=== PATIENT | female | born 1980 ===

== ENCOUNTER 2019-01-11 13:41 | Inpatient (IN) | payer BC, MEDICAID ==
[2019-01-11] MEDS ORDERED: Sodium Chloride 0.9% 10 ML Syringe FLUSH PRN (14:33)
[2019-01-11] MEDS ORDERED: Citric Acid/Sodium Citrate Solution 30 ML Cup PO ONE (14:33)
[2019-01-11] MEDS ORDERED: Sodium Chloride 0.9% 10 ML SDV IV PRN (14:33)
[2019-01-11] MEDS ORDERED: Sodium Chloride 0.9% 2.5 ML Syringe FLUSH PRN (14:33)
[2019-01-11] MEDS ORDERED: ceFAZolin 2 GM in Premix Bag 1 BAG IV ONE (14:51)
[2019-01-11] MEDS ORDERED: Oxytocin/0.9 % Sodium Chloride 30 UNIT/500 ML BAG IV SCH (15:00)
[2019-01-11] MEDS: Lactated Ringers 1,000 ML IV SCH ×2 (15:05→16:46)
--- NOTE | 2019-01-11 15:57 | PCM.LDHP ---
L&D History of Present Illness - General Date of Service: 01/11/19 Admit Problem/Dx: Patient Status Order with Admit Dx/Problem 01/11/19 14:52 Patient Status [ADT] Routine Admission Diagnosis/Problem Admission Diagnosis/Problem Source of Information: Patient History Limitations: Reports: No Limitations - History of Present Illness Improves with: Reports: None Worsens with: Reports: None Associated Symptoms: Reports: N - Related Data Allergies/Adverse Reactions: Allergies Allergy/AdvReac Type Severity Reaction Status Date / Time Unable to Assess Allergy Unverified 01/11/19 14:45 H&P Review of Systems - Review of Systems: Review Of Systems: See Below General: Reports: No Symptoms HEENT: Reports: No Symptoms Pulmonary: Reports: No Symptoms Cardiovascular: Reports: No Symptoms Gastrointestinal: Reports: No Symptoms Genitourinary: Reports: No Symptoms Musculoskeletal: Reports: No Symptoms Skin: Reports: No Symptoms Psychiatric: Reports: No Symptoms Neurological: Reports: No Symptoms Hematologic/Lymphatic: Reports: No Symptoms Immunologic: Reports: No Symptoms L&D Exam - Exam Exam: See Below - Vital Signs Weight: 69.853 kg - OB Specific Fundal Height In cm: 37 Contraction Intensity: Mild Movement: Active Heart Tones: Present Presentation: Vertex - Exam General: Alert, Oriented HEENT: PERRLA, Conjunctiva Clear, EACs Clear, EOMI, Hearing Intact, Mucosa Moist & [place], Nares Patent, Normal Nasal Septum, Posterior Pharynx Clear, TMs Clear Neck: Supple, Trachea Midline Lungs: Clear to Auscultation, Normal Respiratory Effort Cardiovascular: Regular Rate, Regular Rhythm GI/Abdominal Exam: Normal Bowel Sounds, Soft, Non-Tender, No Organomegaly, No Distention, No Abnormal Bruit, No Mass, Pelvis Stable Rectal Exam: Normal Exam, Normal Rectal Tone Genitourinary: Normal external exam, Normal bimanual exam, Normal speculum exam Back Exam: Normal Inspection, Full Range of Motion Extremities: Normal Inspection, Normal Range of Motion, Non-Tender, No Pedal Edema, Normal Capillary Refill Skin: Warm, Dry, Intact Neurological: Cranial Nerves Intact, Reflexes Equal Bilateral Psychiatric: Alert, Normal Affect, Normal Mood - Patient Data Lab Results Last 24 hrs: Laboratory Results - last 24 hr 01/11/19 01/11/19 Range/Units 09:20 15:01 WBC 7.90 (4.0-11.0) K/uL RBC 3.96 L (4.30-5.90) M/uL Hgb 11.3 L (12.0-16.0) g/dL Hct 33.5 L (36.0-46.0) % MCV 84.6 (80.0-98.0) fL MCH 28.5 (27.0-32.0) pg MCHC 33.7 (31.0-37.0) g/dL RDW Std Deviation 39.8 (28.0-62.0) fl RDW Coeff of Jazmin 13 (11.0-15.0) % Plt Count 210 (150-400) K/uL MPV 9.20 (7.40-12.00) fL Nucleated RBC % 0.0 /100WBC Nucleated RBCs # 0 K/uL Membrane Rupture POSITIVE Result Diagrams: 01/11/19 15:01 Problem List Initiated/Reviewed/Updated: Yes Orders Last 24hrs: Active Orders 24 hr Category Date Time Status Patient Status [ADT] Routine ADT 01/11/19 14:52 Active Non Stress Test [RC] PER UNIT ROUTINE Care 01/11/19 14:52 Active Notify Provider Vital Signs [RC] PRN Care 01/11/19 14:54 Active Procedure Site Prep Instruct [RC] ASDIRECTED Care 01/11/19 14:52 Active Verify Patient Consent Obtain [RC] ASDIRECTED Care 01/11/19 14:33 Active Verify Patient Consent Obtain [RC] ASDIRECTED Care 01/11/19 14:52 Active Vital Signs [RC] PER UNIT ROUTINE Care 01/11/19 14:52 Active Nothing per Oral Now Diet [DIET] Diet 01/11/19 Breakfast Active CULTURE GROUP B STREP [RM] Routine Lab 01/11/19 09:20 Received TYPE AND SCREEN [BBK] Routine Lab 01/11/19 15:01 Received Lactated Ringers [Ringers, Lactated] 1,000 ml Med 01/11/19 14:45 Active IV ASDIRECTED Oxytocin/0.9 % Sodium Chloride [Oxytocin 30 Unit/500 ML Med 01/11/19 15:00 Active -NS] 30 unit in 500 ml IV TITRATE Sodium Chloride 0.9% [Normal Saline] Med 01/11/19 14:33 Active 10 ml IV ASDIRECTED PRN Sodium Chloride 0.9% [Saline Flush] Med 01/11/19 14:33 Active 10 ml FLUSH ASDIRECTED PRN Sodium Chloride 0.9% [Saline Flush] Med 01/11/19 14:33 Active 2.5 ml FLUSH ASDIRECTED PRN Medication Administration Instruction [OM.PC] Routine Oth 01/11/19 14:33 Ordered Peripheral IV Insertion Adult [OM.PC] Routine Oth 01/11/19 14:33 Ordered Schedule Procedure [COMM] Per Unit Routine Oth 01/11/19 14:52 Ordered Resuscitation Status Routine Resus Stat 01/11/19 14:51 Ordered Medication Orders Lactated Ringer's (Ringers, Lactated) 1,000 mls @ 125 mls/hr IV ASDIRECTED TIAN Last Admin: 01/11/19 15:05 Dose: 999 mls/hr Oxytocin/Sodium Chloride (Oxytocin 30 Unit/500 Ml-Ns) 30 unit in 500 mls @ 250 mls/hr IV TITRATE TIAN Sodium Chloride (Saline Flush) 10 ml FLUSH ASDIRECTED PRN PRN Reason: Keep Vein Open Last Admin: 01/11/19 15:01 Dose: 10 ml Sodium Chloride (Saline Flush) 2.5 ml FLUSH ASDIRECTED PRN PRN Reason: Keep Vein Open Sodium Chloride (Normal Saline) 10 ml IV ASDIRECTED PRN PRN Reason: IV Use Assessment/Plan Comment:: Intrauterine 36 weeks previous section the patient came to the office complaining of leaking amniotic fluid since Thursday AmniSure performed and was positive. The patient admitted to labor and delivery with indentation of doing repeat section
--- NOTE | 2019-01-11 16:20 | PCM.PREANE ---
Preanesthetic Assessment - Anesthesia/Transfusion/Family Hx Anesthesia History: Prior Anesthesia Without Reaction Family History of Anesthesia Reaction: No Transfusion History: No Prior Transfusion(s) - Review of Systems General: No Symptoms Pulmonary: No Symptoms Cardiovascular: No Symptoms Gastrointestinal: No Symptoms Neurological: No Symptoms Other: Reports: None - Physical Assessment Height: 5 ft 5 in Weight: 69.853 kg ASA Class: 2 Mental Status: Alert & Oriented x3 Airway Class: Mallampati = 2 Dentition: Reports: Normal Dentition Thyro-Mental Finger Breadths: 3 Mouth Opening Finger Breadths: 3 ROM/Head Extension: Full Lungs: Clear to Auscultation, Normal Respiratory Effort Cardiovascular: Regular Rate, Regular Rhythm - Lab Values: Laboratory Last Values WBC 7.90 K/uL (4.0-11.0) 01/11/19 15: RBC 3.96 M/uL (4.30-5.90) L 01/11/19 15:01 Hgb 11.3 g/dL (12.0-16.0) L 01/11/19 15:01 Hct 33.5 % (36.0-46.0) L 01/11/19 15:01 MCV 84.6 fL (80.0-98.0) 01/11/19 15:01 MCH 28.5 pg (27.0-32.0) 01/11/19 15:01 MCHC 33.7 g/dL (31.0-37.0) 01/11/19 15:01 RDW Std Deviation 39.8 fl (28.0-62.0) 01/11/19 15:01 RDW Coeff of Jazmin 13 % (11.0-15.0) 01/11/19 15:01 Plt Count 210 K/uL (150-400) 01/11/19 15:01 MPV 9.20 fL (7.40-12.00) 01/11/19 15:01 Nucleated RBC % 0.0 /100WBC 01/11/19 15:01 Nucleated RBCs # 0 K/uL 01/11/19 15:01 Membrane Rupture POSITIVE 01/11/19 09:20 - Allergies Allergies/Adverse Reactions: Allergies Allergy/AdvReac Type Severity Reaction Status Date / Time Unable to Assess Allergy Unverified 01/11/19 14:45 - Acknowledgements Anesthesia Type Planned: Spinal Pt an Appropriate Candidate for the Planned Anesthesia: Yes Alternatives and Risks of Anesthesia Discussed w Pt/Guardian: Yes Pt/Guardian Understands and Agrees with Anesthesia Plan: Yes PreAnesthesia Questionnaire HEENT History: Reports: None Cardiovascular History: Reports: None Respiratory History: Reports: None Gastrointestinal History: Reports: GERD Genitourinary History: Reports: None FLUE CLEANER History: Reports: : 4 Para: 3 LMP (Approximate): Musculoskeletal History: Reports: None Neurological History: Reports: None Psychiatric History: Reports: None Endocrine/Metabolic History: Reports: None Hematologic History: Reports: Anemia Immunologic History: Reports: None Oncologic (Cancer) History: Reports: None Dermatologic History: Reports: None - Infectious Disease History Infectious Disease History: Reports: None - Past Surgical History Female Surgical History: Reports: Section - SUBSTANCE USE Smoking Status *Q: Never Smoker Recreational Drug Use History: No - CURRENT (IN HOUSE) MEDS Current Meds: Current Medications Lactated Ringer's (Ringers, Lactated) 1,000 mls @ 125 mls/hr IV ASDIRECTED TIAN Last Admin: 01/11/19 15:05 Dose: 999 mls/hr Oxytocin/Sodium Chloride (Oxytocin 30 Unit/500 Ml-Ns) 30 unit in 500 mls @ 250 mls/hr IV TITRATE TIAN Sodium Chloride (Saline Flush) 10 ml FLUSH ASDIRECTED PRN PRN Reason: Keep Vein Open Last Admin: 01/11/19 15:01 Dose: 10 ml Sodium Chloride (Saline Flush) 2.5 ml FLUSH ASDIRECTED PRN PRN Reason: Keep Vein Open Sodium Chloride (Normal Saline) 10 ml IV ASDIRECTED PRN PRN Reason: IV Use Discontinued Medications Citric Acid/Sodium Citrate (Bicitra Solution) 30 ml PO ONETIME ONE Stop: 01/11/19 14:34 Cefazolin Sodium/Dextrose 2 gm (/ Premix) 50 mls @ 100 mls/hr IV ONETIME ONE Stop: 01/11/19 15:20
[2019-01-11] MEDS ORDERED: Oxytocin 10 Units/1 ML SDV ONE (16:34)
[2019-01-11] MEDS ORDERED: Ondansetron 4 MG/2 ML SDV ONE (16:34)
[2019-01-11] MEDS ORDERED: Morphine PF 10 MG/10 ML SDV ONE (16:34)
[2019-01-11] MEDS ORDERED: Citric Acid/Sodium Citrate Solution 30 ML Cup ONE ×2 (16:52→16:53)
[2019-01-11] MEDS ORDERED: ceFAZolin 1 GM Vial ONE (17:03)
[2019-01-11] MEDS ORDERED: Sodium Chloride 0.9% 20 ML ONE (17:03)
[2019-01-11] MEDS ORDERED: ePHEDrine 50 MG/ML SDV ONE (17:18)
[2019-01-11] MEDS ORDERED: Octyl 2-Cyanoacrylate 1 Tube ONE (17:34)
[2019-01-11] MEDS ORDERED: diphenhydrAMINE 50 MG/ML SDV IVPUSH PRN ×2 (17:37→17:40)
[2019-01-11] MEDS ORDERED: Ibuprofen 800 MG Tab PO PRN (17:37)
[2019-01-11] MEDS ORDERED: Bisacodyl 10 MG Supp RECTAL PRN (17:37)
[2019-01-11] MEDS ORDERED: Ondansetron 4 MG/2 ML SDV IVPUSH PRN ×2 (17:37→17:40)
[2019-01-11] MEDS ORDERED: Acetaminophen/oxyCODONE 325-5 MG Tab PO PRN ×3 (17:37→17:40)
[2019-01-11] MEDS ORDERED: Lanolin 100% Cream 7 GM Tube TOP PRN (17:37)
[2019-01-11] MEDS ORDERED: Nalbuphine 10 MG/1 ML Vial IVPUSH PRN (17:40)
[2019-01-11] MEDS ORDERED: fentaNYL 100 MCG/2 ML SDV IVPUSH PRN (17:40)
[2019-01-11] MEDS ORDERED: Naloxone 0.4 MG/ML Syringe IVPUSH PRN (17:40)
--- NOTE | 2019-01-11 17:40 | PCM.OPNOTE ---
- General Post-Op/Procedure Note Date of Surgery/Procedure: 01/11/19 Operative Procedure(s): Repeat C/Section Pre Op Diagnosis: [id number] SROM Post-Op Diagnosis: Same Anesthesia Technique: Spinal Primary Surgeon: Dmitry Valentin Vending Machine Technician: Kriss Flores EBL in mLs: 600 Complications: None Condition: Good
[2019-01-11] MEDS ORDERED: Lactated Ringers 1,000 ML IV SCH (17:45)
[2019-01-11] MEDS: Ketorolac 30 MG/ML SDV IVPUSH SCH (18:18)
--- NOTE | 2019-01-11 18:42 | PCM.POSTAN ---
POST ANESTHESIA ASSESSMENT - MENTAL STATUS Mental Status: Alert, Oriented - RESPIRATORY Respiratory Status: Respiratory Rate WNL, Airway Patent, O2 Saturation Stable - CARDIOVASCULAR CV Status: Pulse Rate WNL, Blood Pressure Stable - GASTROINTESTINAL GI Status: No Symptoms - PAIN Pain Score: 0 - POST OP HYDRATION Hydration Status: Adequate & Stable
[2019-01-11] MEDS ORDERED: Docusate Sodium 100 MG Cap PO SCH (21:00)
--- NOTE | 2019-01-11 21:50 | PCM48HPAN ---
Post Anesthesia Note - EVALUATION WITHIN 48HRS OF ANESTHETIC Vital Signs in Normal Range: Yes Patient Participated in Evaluation: Yes Respiratory Function Stable: Yes Airway Patent: Yes Cardiovascular Function Stable: Yes Hydration Status Stable: Yes Pain Control Satisfactory: Yes Nausea and Vomiting Control Satisfactory: Yes Mental Status Recovered: Yes Resp Rate: 18
[2019-01-12] MEDS: Ketorolac 30 MG/ML SDV IVPUSH SCH ×3 (00:03→12:12)
--- NOTE | 2019-01-12 01:55 | OR ---
SURGEON: Dmitry Valentin MD DATE OF PROCEDURE: 01/11/2019 PREOPERATIVE DIAGNOSES: Intrauterine , spontaneous rupture of the membrane by positive AmniSure, previous section. POSTOPERATIVE DIAGNOSES: Intrauterine , spontaneous rupture of the membrane by positive AmniSure, previous section. OPERATION PERFORMED: Repeat low-transverse section. PRIMARY SURGEON: Dmitry Valentin MD. SALES ORDER CLERK: Kriss Flores, certified nurse hazardous substances engineer. ANESTHESIA: Spinal. ANESTHESIOLOGISTS: Mr. Iain Diaz and Dr. Del Toro. ESTIMATED BLOOD LOSS: 600 mL. COMPLICATIONS: None. VEGETABLE TIER: On-call. INDICATIONS FOR SURGERY: This patient is 36 weeks. She is followed in our office. She had a previous section. She IS presented today to the clinic complaining of vaginal discharge and leaking of amniotic fluid. AmniSure is performed and it was positive. The patient is admitted. Ultrasound Is performed. It confirmed there is a copious amount of amniotic fluid. The patient was started on appropriate antibiotic and because she had a previous section, we elected to repeat her section. PROCEDURE IN DETAIL: The patient was brought to the OR, properly identified. After adequate level of spinal anesthesia, the patient prepped and draped in sterile fashion as usual. Low transverse Pfannenstiel skin incision done. Naomi's fascia and rectus fascia were opened in direction of the incision. The 2 recti muscles were and peritoneal cavity was entered and then low transverse uterine incision was done and extended manually with hand. Fetus was in a vertex position, delivered without any problem, cried immediately and handed to the merchandiser for resuscitation who was present at the time of delivery. The placenta delivered spontaneous, complete, and intact. The weight and score were not available at this time and then after evacuating the placenta, repair of the lower uterine segment was done with 2-0 Vicryl continuous interlocking in 2 layers. Reperitonealization done with 3-0 Vicryl continuous. The peritoneal cavity evacuated completely from all blood and blood clots and closed with 3-0 Vicryl continuous. Then, the rectus fascia was closed with #1 PDS single strand continuous, Naomi's fascia with 3-0 Vicryl continuous and then the skin closed with 3-0 Vicryl in a subcuticular fashion and Dermabond. Instrument and sponge count was correct. The patient tolerated the procedure well, went to recovery room in stable general condition. TAMIKA ROSADO /[id number]
--- NOTE | 2019-01-12 08:31 | PCM.DCSUM1 ---
Discharge Summary - Hospital Course Diagnosis: Stroke: Yes Modified Henderson Scale: No Symptoms at All Modified Henderson Scale Score: 0 - Discharge Data Discharge Date: 01/12/19 Discharge Disposition: Home, Self-Care 01 Condition: Good - Patient Summary/Data Operative Procedure(s) Performed: Repeat C/Section - Patient Instructions Diet: Usual Diet as Tolerated Activity: As Tolerated, No Strenuous Activities, Rest and Relax Today Driving: Do Not Drive Showering/Bathing: May Shower Notify Provider of: Fever, Increased Pain, Swelling and Redness, Drainage, Nausea and/or Vomiting - Discharge Plan *PRESCRIPTION DRUG MONITORING PROGRAM REVIEWED*: Not Applicable *COPY OF PRESCRIPTION DRUG MONITORING REPORT IN PATIENT MURPHY: Not Applicable Oxygen Therapy Mode: Room Air - Discharge Summary/Plan Comment DC Time >30 min.: Yes - General Info Date of Service: 01/12/19 Admission Dx/Problem (Free Text: Patient Status Order with Admit Dx/Problem 01/11/19 14:52 Patient Status [ADT] Routine Admission Diagnosis/Problem Admission Diagnosis/Problem Functional Status: Reports: Pain Controlled, Tolerating Diet, Ambulating. Denies: Urinating - Review of Systems General: Reports: No Symptoms HEENT: Reports: No Symptoms Pulmonary: Reports: No Symptoms Cardiovascular: Reports: No Symptoms Gastrointestinal: Reports: No Symptoms Genitourinary: Reports: No Symptoms Musculoskeletal: Reports: No Symptoms Skin: Reports: No Symptoms Neurological: Reports: No Symptoms Psychiatric: Reports: No Symptoms - Patient Data Vitals - Most Recent: Last Vital Signs Temp 36.6 C 01/12/19 00:00 Pulse 74 01/12/19 06:00 Resp 16 01/12/19 06:00 BP 110/70 01/12/19 06:00 Pulse Ox 98 01/12/19 06:00 Weight - Most Recent: 69.853 kg I&O - Last 24 hours: Intake & Output 01/11/19 01/12/19 01/12/19 22:59 06:59 14:59 Intake Total 1900 Output Total 175 1570 Balance 1725 -1570 Lab Results - Last 24 hrs: Laboratory Results - last 24 hr 01/11/19 01/11/19 01/11/19 Range/Units 09:20 15:01 15:01 WBC 7.90 (4.0-11.0) K/uL RBC 3.96 L (4.30-5.90) M/uL Hgb 11.3 L (12.0-16.0) g/dL Hct 33.5 L (36.0-46.0) % MCV 84.6 (80.0-98.0) fL MCH 28.5 (27.0-32.0) pg MCHC 33.7 (31.0-37.0) g/dL RDW Std Deviation 39.8 (28.0-62.0) fl RDW Coeff of Jazmin 13 (11.0-15.0) % Plt Count 210 (150-400) K/uL MPV 9.20 (7.40-12.00) fL Nucleated RBC % 0.0 /100WBC Nucleated RBCs # 0 K/uL Membrane Rupture POSITIVE Blood Type A POSITIVE Antibody Screen NEGATIVE 01/12/19 Range/Units 05:00 WBC (4.0-11.0) K/uL RBC (4.30-5.90) M/uL Hgb 11.1 L (12.0-16.0) g/dL Hct 33.7 L (36.0-46.0) % MCV (80.0-98.0) fL MCH (27.0-32.0) pg MCHC (31.0-37.0) g/dL RDW Std Deviation (28.0-62.0) fl RDW Coeff of Jazmin (11.0-15.0) % Plt Count (150-400) K/uL MPV (7.40-12.00) fL Nucleated RBC % /100WBC Nucleated RBCs # K/uL Membrane Rupture Blood Type Antibody Screen Med Orders - Current: Current Medications Bisacodyl (Dulcolax) 10 mg RECTAL ONETIME PRN PRN Reason: Constipation Diphenhydramine HCl (Benadryl) 25 mg IVPUSH Q6H PRN PRN Reason: Itching or Nausea Last Admin: 01/12/19 04:13 Dose: 25 mg Diphenhydramine HCl (Benadryl) 25 mg IVPUSH Q4H PRN PRN Reason: Itching Stop: 01/12/19 17:40 Docusate Sodium (Colace) 100 mg PO BID TIAN Emollient Ointment (Lansinoh Hpa) 0 gm TOP ASDIRECTED PRN PRN Reason: Sore Nipples Fentanyl (Sublimaze) 50 mcg IVPUSH Q1H PRN PRN Reason: Pain (severe 7-10) Lactated Ringer's (Ringers, Lactated) 1,000 mls @ 125 mls/hr IV ASDIRECTED [facility] Last Admin: 01/11/19 16:46 Dose: 999 mls/hr Oxytocin/Sodium Chloride (Oxytocin 30 Unit/500 Ml-Ns) 30 unit in 500 mls @ 250 mls/hr IV TITRATE [facility] Lactated Ringer's (Ringers, Lactated) 1,000 mls @ 125 mls/hr IV ASDIRECTED [facility] Last Admin: 01/11/19 18:59 Dose: 125 mls/hr Ibuprofen (Motrin) 800 mg PO Q8H PRN PRN Reason: mild pain or fever Ketorolac Tromethamine (Toradol) 30 mg IVPUSH Q6H [facility] Stop: 01/12/19 17:46 Last Admin: 01/12/19 06:17 Dose: 30 mg Nalbuphine HCl (Nubain) 5 mg IVPUSH ASDIRECTED PRN PRN Reason: Itching Last Admin: 01/12/19 00:03 Dose: 5 mg Naloxone HCl (Narcan) 0.1 mg IVPUSH ONETIME PRN PRN Reason: Respiratory Depression Stop: 01/12/19 17:40 Ondansetron HCl (Zofran) 4 mg IVPUSH Q4H PRN PRN Reason: Nausea/Vomiting Last Admin: 01/12/19 00:03 Dose: 4 mg Ondansetron HCl (Zofran) 4 mg IVPUSH Q6H PRN PRN Reason: Nausea Oxycodone/Acetaminophen (Percocet 325-5 Mg) 1 tab PO Q4H PRN PRN Reason: Pain (moderate 4-6) Oxycodone/Acetaminophen (Percocet 325-5 Mg) 2 tab PO Q4H PRN PRN Reason: Pain (moderate 4-6) Oxycodone/Acetaminophen (Percocet 325-5 Mg) 2 tab PO Q6H PRN PRN Reason: Pain (moderate 4-6) Sodium Chloride (Saline Flush) 10 ml FLUSH ASDIRECTED PRN PRN Reason: Keep Vein Open Last Admin: 01/11/19 15:01 Dose: 10 ml Sodium Chloride (Saline Flush) 2.5 ml FLUSH ASDIRECTED PRN PRN Reason: Keep Vein Open Sodium Chloride (Normal Saline) 10 ml IV ASDIRECTED PRN PRN Reason: IV Use Discontinued Medications Cefazolin Sodium (Ancef) Confirm Administered Dose 2 gm .ROUTE .STK-MED ONE Stop: 01/11/19 17:04 Citric Acid/Sodium Citrate (Bicitra Solution) 30 ml PO ONETIME ONE Stop: 01/11/19 14:34 Citric Acid/Sodium Citrate (Bicitra Solution) Confirm Administered Dose 30 ml .ROUTE .STK-MED ONE Stop: 01/11/19 16:53 Last Admin: 01/11/19 16:56 Dose: 30 ml Citric Acid/Sodium Citrate (Bicitra Solution) Confirm Administered Dose 30 ml .ROUTE .STK-MED ONE Stop: 01/11/19 16:54 Ephedrine Sulfate (Ephedrine Sulfate) Confirm Administered Dose 50 mg .ROUTE .STK-MED ONE Stop: 01/11/19 17:19 Cefazolin Sodium/Dextrose 2 gm (/ Premix) 50 mls @ 100 mls/hr IV ONETIME ONE Stop: 01/11/19 15:20 Sodium Chloride (Normal Saline) Confirm Administered Dose 20 mls @ as directed .ROUTE .STK-MED ONE Stop: 01/11/19 17:04 Morphine Sulfate (Duramorph Pf) Confirm Administered Dose 10 mg .ROUTE .STK-MED ONE Stop: 01/11/19 16:35 Octyl Cyanoacrylate (Dermabond Advance) Confirm Administered Dose 1 applic .ROUTE .STK-MED ONE Stop: 01/11/19 17:35 Ondansetron HCl (Zofran) Confirm Administered Dose 4 mg .ROUTE .STK-MED ONE Stop: 01/11/19 16:35 Oxytocin (Pitocin) Confirm Administered Dose 30 unit .ROUTE .STK-MED ONE Stop: 01/11/19 16:35 - Exam General: Reports: Alert, Oriented, Cooperative, No Acute Distress Lungs: Reports: Clear to Auscultation, Normal Respiratory Effort Cardiovascular: Reports: Regular Rate, Regular Rhythm, No Murmurs GI/Abdominal Exam: Soft, Non-Tender (Female) Exam: Deferred, Vaginal Bleeding Rectal (Female) Exam: Deferred Back Exam: Reports: Normal Inspection, Full Range of Motion Extremities: Normal Inspection, Normal Range of Motion, Non-Tender, No Pedal Edema, Normal Capillary Refill Skin: Reports: Warm, Dry, Intact Wound/Incisions: Reports: Healing Well, Dressing Dry and Intact Neurological: Reports: No New Focal Deficit, Normal Speech, Normal Tone, Strength Equal Bilateral Psy/Mental Status: Reports: Alert, Normal Affect, Normal Mood
== END 2019-01-12 16:40 | disposition home or self-care (01) | DRG 540 ==
LOC: MW.SDS 13:41 → MW.OB 14:49
PROVIDERS: ADMIT Obstetrics & Gynecology; ATTEND Obstetrics & Gynecology
PROC: 10D00Z1 Extraction of Products of Conception, Low, Open Approach (ICD-10-PCS; principal; 2019-01-11)
DX: O34.211 Maternal care for low transverse scar from previous cesarean delivery (principal); N85.8 Other specified noninflammatory disorders of uterus; Z3A.36 36 weeks gestation of pregnancy; Z37.0 Single live birth; O99.62 Diseases of the digestive system complicating childbirth; K21.9 Gastro-esophageal reflux disease without esophagitis; O99.02 Anemia complicating childbirth; D64.9 Anemia, unspecified
CPT/HCPCS: 36415; 51701; 59025; 84112; 85014; 85018; 85027; 86850; 86900; 86901; 87081; A9270-GY; J0690; J1200; J1885; J2270; J2300; J2405; J2590; J7120